=== PATIENT | male | born 1955 | race Caucasian/White ===

== ENCOUNTER 2018-12-02 19:18 | Emergency (ER) | payer OTHER ==
[~2018-12-02] VITALS: Ht 180.3 cm; Wt 154.5 kg
[2018-12-02 19:25] VITALS: TEMP 98.3
[2018-12-02] MEDS ORDERED: WELLBUTRIN SR100 M1 (19:38)
[2018-12-02] MEDS ORDERED: PRINIVIL10 MG PO (19:38)
[2018-12-02] MEDS ORDERED: LIPITOR 10MG10 MG PO (19:38)
[2018-12-02] MEDS ORDERED: ZITHROMAX 250M250 MG PO (21:30)
[2018-12-02] MEDS ORDERED: FLEXERIL 1010 MG/TAB PO (21:30)
[2018-12-02 22:00] VITALS: BP 151/84; PULSE 73
== END 2018-12-02 22:00 | disposition home or self-care (01) ==
LOC: COL.ER 19:18
DX: S13.4XXA Sprain of ligaments of cervical spine, initial encounter (principal); S33.5XXA Sprain of ligaments of lumbar spine, initial encounter; J40 Bronchitis, not specified as acute or chronic; E78.00 Pure hypercholesterolemia, unspecified; I10 Essential (primary) hypertension; V43.52XA Car driver injured in collision with other type car in traffic accident, initial encounter